=== PATIENT | male | born 1955 | race African-American/Black ===

== ENCOUNTER 2016-11-23 08:54 | Emergency (ER) | payer MEDICAID | END 2016-11-23 12:24 | disposition home or self-care (01) | LOC: ER 08:54 | DX: M25.511 Pain in right shoulder (principal); X50.0XXA Overexertion from strenuous movement or load, initial encounter; Y93.B3 Activity, free weights; Y92.009 Unspecified place in unspecified non-institutional (private) residence as the place of occurrence of the external cause; I10 Essential (primary) hypertension; F17.200 Nicotine dependence, unspecified, uncomplicated ==